=== PATIENT | female | born 1980 | race Caucasian/White ===

== ENCOUNTER 2024-09-22 08:26 | Emergency (ER) | payer OTHER ==
[~2024-09-22] VITALS: Ht 175.3 cm; Wt 65.8 kg
[2024-09-22] MEDS ORDERED: VIGAMOX OU (08:52)
[2024-09-22] MEDS ORDERED: LEVOFLOXACIN750 MG PO (08:52)
[2024-09-22 09:12] VITALS: BP 136/85
== END 2024-09-22 09:13 | disposition home or self-care (01) | DRG 153 ==
LOC: ED 08:26
DX: J32.0 Chronic maxillary sinusitis (principal); H10.33 Unspecified acute conjunctivitis, bilateral